=== PATIENT | female | born 1935 | race Caucasian/White ===

== ENCOUNTER 2022-06-02 11:54 | Inpatient (IN) | payer MEDICARE, MEDICAID ==
[~2022-06-02] VITALS: Ht 162.6 cm; Wt 93.9 kg
[2022-06-02] VITALS (23 sets, daily range): BP systolic 53–213; BP diastolic 24–169
[~2022-06-02 11:54] MED LIST: ETOMIDATE 2MG/ML 10ML VIAL IV ONE; SODIUM CHLORIDE 0.9% 10ML VIAL ONE; VECURONIUM BROMIDE 10 MG/VIAL IV ONE
[2022-06-02 12:15] LABS: BASOPHILS % 0.9 % (0.0-2.0); EOSINOPHILS % 0.1 % (0.0-5.0); HEMATOCRIT. 43.5 % (36.0-48.0); HEMOGLOBIN. 13.9 g/dL (12.0-16.0); MEAN CORPUSCULAR VOLUME 90.8 fL (81.0-99.0); MEAN PLATELET VOLUME 10.2 fl (7.4-10.4); MONOCYTES % 3.3 % (2.0-8.0); NEUTROPHILS % 87.7 % (40.0-76.0); PLATELET 227 x1000/uL (130-400); RED BLOOD CELL COUNT 4.79 mill/uL (4.2-5.4)
[2022-06-02] MEDS ORDERED: PIPERACILLIN/TAZ 3.375G PREMIX 50 ML IV ONE (12:15)
[2022-06-02] MEDS ORDERED: ACETAMINOPHEN 650MG SUPP PR ONE ×2 (12:15→13:30)
[2022-06-02] MEDS ORDERED: SODIUM CHLORIDE 0.9% 1000ML BAG (SEPSIS BOLUS) IV ONE (12:15)
[2022-06-02] MEDS ORDERED: VANCOMYCIN 1G PREMIX 200 ML IV ONE (12:15)
[2022-06-02 12:23] LABS: CHLORIDE 88 mEq/L (98-107)
[2022-06-02 12:28] LABS: INR 1.4; PROTHROMBIN TIME 14.2 sec (9.6-11.0)
[2022-06-02 12:29] LABS: CLARITY URINE CLEAR (CLEAR); COLOR URINE YELLOW (YELLOW); KETONES URINE 1+ (NEGATIVE); LEUKOCYTE ESTERASE URINE NEGATIVE (NEGATIVE); NITRITE URINE NEGATIVE (NEGATIVE); OCCULT BLOOD URINE 2+ (NEGATIVE); PROTEIN URINE 4+ (NEGATIVE); SPECIFIC GRAVITY URINE 1.026 (1.005-1.030)
[2022-06-02] MEDS ORDERED: ACETAMINOPHEN 325MG SUPP PR NR (13:15)
[2022-06-02] MEDS ORDERED: MIDAZOLAM 100MG/100ML PMX 100 ML IV PRN (14:00)
[2022-06-02] MEDS ORDERED: VECURONIUM BROMIDE 10 MG/VIAL IV ONE (14:00)
[2022-06-02] MEDS ORDERED: MIDAZOLAM HCL 2 MG/2 ML VIAL IV ONE (14:00)
[2022-06-02] MEDS ORDERED: FENTANYL 2500MCG/250ML PMX 250 ML IV ONE (14:00)
[2022-06-02] MEDS ORDERED: DANTROLENE SODIUM 100 MG GT STA (14:05)
[2022-06-02] MEDS ORDERED: SODIUM CHLORIDE 0.9% 1,000 ML IV ONE ×2 (14:15)
[2022-06-02] MEDS ORDERED: MIDAZOLAM HCL 100 MG in DEXT 5% WATER 80 ML IV PRN (14:15)
[2022-06-02] MEDS ORDERED: MIDAZOLAM HCL 100 MG in SODIUM CHLORIDE 0.9% 80 ML IV PRN (14:30)
[2022-06-02] MEDS ORDERED: PROPOFOL 10MG/ML 100ML 100 ML IV SCH (14:30)
[2022-06-02] MEDS ORDERED: INSULIN REGULAR (HUMULIN R) 300UNITS/3ML VIAL SUBCUT ONE (14:30)
[2022-06-02] MEDS ORDERED: DANTROLENE SODIUM 100 MG PO ONE (14:45)
[2022-06-02 15:43] LABS: BG BASE EXCESS -9.9 mmol/L (-2.0-2.0); BG CARBOXYHEMOGLOBIN 0.4 % (0.5-1.5); BG DEOXYHEMOGLOBIN 0.1 % (0.0-5.0); BG FRACTION INSPIRED OXYGEN 100; BG HCO3 ACT 14.5 mmol/L (22.0-26.0); BG METHEMOGLOBIN 0.5 % (0.0-1.5); BG OXYGEN SATURATION 99.9 % (92.0-98.5); BG PCO2 28.2 mmHg (35.0-45.0); BG PO2 319.3 mmHg (75.0-100.0); BG SAMPLE SITE RIGHT RADIAL; BG TOTAL HEMOGLOBIN 13.5 g/dL (12.0-18.0); BG VENT MODE VENT - AC
[2022-06-02] MEDS ORDERED: DANTROLENE IV SCH (16:00)
[2022-06-02] MEDS ORDERED: ONDANSETRON HCL 4MG/2ML INJ IV PRN (16:15)
[2022-06-02] MEDS ORDERED: IPRATROPIUM/ALBUTEROL 0.5-3(2.5)MG/3ML NEB NEB PRN (16:15)
[2022-06-02] MEDS ORDERED: DEXTROSE 50% WATER 50ML SYRINGE IV PRN (16:30)
[2022-06-02] MEDS ORDERED: LEVETIRACETAM 500MG PREMIX 100 ML IV SCH ×2 (16:30→20:00)
[2022-06-02] MEDS ORDERED: MEROPENEM 1,000 MG in SODIUM CHLORIDE 0.9% 100 ML IV SCH (17:00)
[2022-06-02] MEDS ORDERED: BLOOD SUGAR DIAGNOSTIC STRIP TEST SCH (17:00)
[2022-06-02] MEDS ORDERED: LACTATED RINGERS 1,000 ML IV SCH ×2 (17:40→17:45)
[2022-06-02] MEDS ORDERED: VASOPRESSIN 20 UNIT in SODIUM CHLORIDE 0.9% 99 ML IV PRN (17:45)
[2022-06-02] MEDS ORDERED: PHENYLEPHRINE 50 MG in DEXT 5% WATER 245 ML IV PRN ×2 (17:45→18:00)
[2022-06-02] MEDS ORDERED: ENOXAPARIN 40MG/0.4ML SYR SUBCUT SCH (18:00)
[2022-06-02] MEDS: SODIUM CHLORIDE 0.9% 1,000 ML IV SCH (18:26)
[2022-06-02] MEDS: MEROPENEM 1,000 MG in SODIUM CHLORIDE 0.9% 100 ML IV SCH (18:26)
[2022-06-02] MEDS: VASOPRESSIN 20 UNIT in SODIUM CHLORIDE 0.9% 99 ML IV PRN (18:51)
[2022-06-02] MEDS: INSULIN LISPRO 100 UNITS/ML SUBCUT SCH ×2 (18:57→20:44)
[2022-06-02] MEDS ORDERED: VANCOMYCIN 1,750 MG in DEXT 5% WATER 500 ML IV NR (19:00)
[2022-06-02] MEDS: NOREPINEPHRINE 32 MG in DEXT 5% WATER 218 ML IV PRN (19:19)
[2022-06-02] MEDS: IPRATROPIUM/ALBUTEROL 0.5-3(2.5)MG/3ML NEB HHN SCH (19:59)
[2022-06-02] MEDS: LEVETIRACETAM 500MG PREMIX 100 ML IV SCH (20:13)
[2022-06-02] MEDS: BLOOD SUGAR DIAGNOSTIC STRIP TEST SCH (20:46)
[2022-06-02] MEDS ORDERED: PIPERACILLIN/TAZOBACTAM 3.375 G in DEXTROSE 5% WATER 50 ML IV SCH (21:00)
[2022-06-02] MEDS: PHENYLEPHRINE 100 MG in DEXT 5% WATER 240 ML IV SCH (21:47)
[2022-06-02 23:38] LABS: CREATINE KINASE 473 IU/L (26-192); CREATINE KINASE MB FRACTION 11.8 ng/mL (0.5-3.6)
[2022-06-03] VITALS (90 sets, daily range): BP systolic 52–183; BP diastolic 32–98
[2022-06-03 00:03] LABS: BG BASE EXCESS -13.8 mmol/L (-2.0-2.0); BG CARBOXYHEMOGLOBIN 0.4 % (0.5-1.5); BG DEOXYHEMOGLOBIN 1.9 % (0.0-5.0); BG FRACTION INSPIRED OXYGEN 70; BG HCO3 ACT 13.3 mmol/L (22.0-26.0); BG METHEMOGLOBIN 0.3 % (0.0-1.5); BG OXYGEN SATURATION 98.1 % (92.0-98.5); BG OXYHEMOGLOBIN 97.4 % (94.0-97.0); BG PCO2 35.1 mmHg (35.0-45.0); BG PH 7.195 (7.350-7.450); BG PO2 118.9 mmHg (75.0-100.0); BG SAMPLE SITE RIGHT BRACHIAL; BG TOTAL HEMOGLOBIN 14.8 g/dL (12.0-18.0); BG TOTAL RESPIRATORY RATE 20 b/min; BG VENT MODE VENT - AC
[2022-06-03] MEDS: INSULIN LISPRO 100 UNITS/ML SUBCUT SCH ×7 (00:23→23:53)
[2022-06-03] MEDS: SODIUM BICARBONATE 100 MEQ in SODIUM CHLORIDE 0.45% 1,000 ML IV SCH ×2 (01:31→15:47)
[2022-06-03] MEDS: NOREPINEPHRINE 32 MG in DEXT 5% WATER 218 ML IV PRN ×3 (01:51→15:48)
[2022-06-03] MEDS: IPRATROPIUM/ALBUTEROL 0.5-3(2.5)MG/3ML NEB HHN SCH ×4 (02:04→20:57)
[2022-06-03 04:43] LABS: CREATINE KINASE MB FRACTION 15.8 ng/mL (0.5-3.6)
[2022-06-03] MEDS: BLOOD SUGAR DIAGNOSTIC STRIP TEST SCH ×7 (04:48→23:53)
[2022-06-03] MEDS: SODIUM CHLORIDE 0.9% 1,000 ML IV SCH ×4 (04:53→23:53)
[2022-06-03] MEDS: PHENYLEPHRINE 100 MG in DEXT 5% WATER 240 ML IV SCH ×3 (04:56→17:16)
[2022-06-03] MEDS: VASOPRESSIN 20 UNIT in SODIUM CHLORIDE 0.9% 99 ML IV PRN (04:57)
[2022-06-03 07:44] LABS: HEMATOCRIT. 46.2 % (36.0-48.0); HEMOGLOBIN. 14.3 g/dL (12.0-16.0); MEAN CORPUSCULAR VOLUME 93.8 fL (81.0-99.0); RED BLOOD CELL COUNT 4.93 mill/uL (4.2-5.4); RED CELL DISTRIBUTION WIDTH 15.7 % (11.6-14.6)
[2022-06-03 08:24] LABS: PLATELET ESTIMATE DECREASED
[2022-06-03 08:25] LABS: MEAN PLATELET VOLUME 9.8 fl (7.4-10.4)
[2022-06-03 08:26] LABS: PLATELET 59 x1000/uL (130-400)
[2022-06-03 08:36] LABS: BG BASE EXCESS -10.6 mmol/L (-2.0-2.0); BG CARBOXYHEMOGLOBIN 0.7 % (0.5-1.5); BG DEOXYHEMOGLOBIN 1.8 % (0.0-5.0); BG FRACTION INSPIRED OXYGEN 70; BG HCO3 ACT 14.7 mmol/L (22.0-26.0); BG METHEMOGLOBIN 0.3 % (0.0-1.5); BG OXYGEN SATURATION 98.2 % (92.0-98.5); BG OXYHEMOGLOBIN 97.2 % (94.0-97.0); BG PCO2 31.5 mmHg (35.0-45.0); BG PH 7.287 (7.350-7.450); BG PO2 105.2 mmHg (75.0-100.0); BG SAMPLE SITE RIGHT RADIAL; BG TOTAL HEMOGLOBIN 14.9 g/dL (12.0-18.0); BG VENT MODE VENT - AC
[2022-06-03] MEDS: LEVETIRACETAM 500MG PREMIX 100 ML IV SCH ×2 (08:38→21:22)
[2022-06-03] MEDS ORDERED: PANTOPRAZOLE SODIUM 40 MG/VIAL IV SCH (09:00)
[2022-06-03] MEDS: MEROPENEM 1,000 MG in SODIUM CHLORIDE 0.9% 100 ML IV SCH ×2 (09:35→21:21)
[2022-06-03] MEDS: LAMOTRIGINE 25MG TABLET NG SCH ×2 (09:35→17:14)
[2022-06-03] MEDS ORDERED: SODIUM BICARBONATE 8.4% 1 MEQ/ML 50ML SYR IV NR (14:15)
[2022-06-03 17:00] LABS: BG BASE EXCESS -7.7 mmol/L (-2.0-2.0); BG CARBOXYHEMOGLOBIN 0.7 % (0.5-1.5); BG DEOXYHEMOGLOBIN 1.1 % (0.0-5.0); BG FRACTION INSPIRED OXYGEN 100; BG METHEMOGLOBIN 0.3 % (0.0-1.5); BG OXYGEN SATURATION 98.9 % (92.0-98.5); BG OXYHEMOGLOBIN 97.9 % (94.0-97.0); BG PCO2 37.3 mmHg (35.0-45.0); BG PH 7.301 (7.350-7.450); BG PO2 135.3 mmHg (75.0-100.0); BG SAMPLE SITE RIGHT RADIAL; BG TOTAL HEMOGLOBIN 14.6 g/dL (12.0-18.0); BG VENT MODE VENT - AC
[2022-06-03] MEDS: DAPTOMYCIN 500 MG in SODIUM CHLORIDE 0.9% 50 ML IV SCH (17:14)
[2022-06-03] MEDS ORDERED: TOPUD MT (18:00)
[2022-06-03 18:04] LABS: HEMATOCRIT 41.7 % (36.0-48.0); HEMOGLOBIN 13.7 g/dL (12.0-16.0); MEAN CORPUSCULAR HEMOGLOBIN 29.5 pg (28.0-32.0); MEAN CORPUSCULAR VOLUME 89.5 fL (81.0-99.0); RED BLOOD CELL COUNT 4.66 mill/uL (4.2-5.4); RED CELL DISTRIBUTION WIDTH 15.6 % (11.6-14.6)
[2022-06-03] MEDS ORDERED: ALBU90AE INH (18:05)
[2022-06-03] MEDS ORDERED: ALPR-394 MT (18:06)
[2022-06-03] MEDS ORDERED: AMIT25TA9 MT (18:07)
[2022-06-03] MEDS ORDERED: ASPI-1497 MT (18:08)
[2022-06-03] MEDS ORDERED: CLON1PAT12 TP (18:09)
[2022-06-03 18:11] LABS: PLATELET 46 x1000/uL (130-400)
[2022-06-03] MEDS ORDERED: DOCU-138 PO (18:15)
[2022-06-03] MEDS ORDERED: DULO60CA64 MT (18:17)
[2022-06-03] MEDS ORDERED: GABA300S PO (18:18)
[2022-06-03] MEDS ORDERED: LAMO25TA71 PO (18:19)
[2022-06-03] MEDS ORDERED: LOSA50TA41 MT (18:20)
[2022-06-03] MEDS ORDERED: NITR0.4T49 SL (18:22)
[2022-06-03] MEDS ORDERED: POLY17PO3 MT (18:22)
[2022-06-03] MEDS ORDERED: OXYC1TAB5 MT (18:25)
[2022-06-03] MEDS ORDERED: DICL100G31 TP (18:46)
[2022-06-03] MEDS: ACETAMINOPHEN 325MG TABLET PO PRN (22:53)
[2022-06-04] VITALS (96 sets, daily range): BP systolic 93–138; BP diastolic 49–94
[2022-06-04] MEDS: IPRATROPIUM/ALBUTEROL 0.5-3(2.5)MG/3ML NEB HHN SCH ×5 (01:05→20:03)
[2022-06-04] MEDS: PHENYLEPHRINE 100 MG in DEXT 5% WATER 240 ML IV SCH ×3 (02:54→23:52)
[2022-06-04] MEDS: ACETAMINOPHEN 325MG TABLET PO PRN (02:55)
[2022-06-04] MEDS: INSULIN LISPRO 100 UNITS/ML SUBCUT SCH ×5 (04:30→23:30)
[2022-06-04] MEDS: BLOOD SUGAR DIAGNOSTIC STRIP TEST SCH ×5 (04:46→23:27)
[2022-06-04] MEDS: SODIUM BICARBONATE 100 MEQ in SODIUM CHLORIDE 0.45% 1,000 ML IV SCH ×2 (06:13→20:30)
[2022-06-04 06:39] LABS: HEMATOCRIT 41.2 % (36.0-48.0); HEMOGLOBIN 13.6 g/dL (12.0-16.0); MEAN CORPUSCULAR HEMOGLOBIN 29.3 pg (28.0-32.0); MEAN CORPUSCULAR VOLUME 88.9 fL (81.0-99.0); RED BLOOD CELL COUNT 4.64 mill/uL (4.2-5.4); RED CELL DISTRIBUTION WIDTH 15.5 % (11.6-14.6)
[2022-06-04 07:00] LABS: PHOSPHORUS 3.5 mg/dL (2.5-4.9)
[2022-06-04 08:00] LABS: PLATELET 58 x1000/uL (130-400)
[2022-06-04 08:13] LABS: BG BASE EXCESS -6.2 mmol/L (-2.0-2.0); BG DEOXYHEMOGLOBIN 2.1 % (0.0-5.0); BG HCO3 ACT 17.8 mmol/L (22.0-26.0); BG METHEMOGLOBIN 0.3 % (0.0-1.5); BG OXYGEN SATURATION 97.9 % (92.0-98.5); BG OXYHEMOGLOBIN 96.6 % (94.0-97.0); BG PCO2 31.2 mmHg (35.0-45.0); BG PH 7.373 (7.350-7.450); BG PO2 100.1 mmHg (75.0-100.0); BG SAMPLE SITE RIGHT RADIAL; BG TOTAL HEMOGLOBIN 14.9 g/dL (12.0-18.0); BG VENT MODE VENT - AC
[2022-06-04] MEDS: LEVETIRACETAM 500MG PREMIX 100 ML IV SCH ×2 (08:15→20:26)
[2022-06-04] MEDS: FAMOTIDINE 20MG/2ML VIAL IV SCH (08:15)
[2022-06-04] MEDS: MEROPENEM 1,000 MG in SODIUM CHLORIDE 0.9% 100 ML IV SCH ×2 (08:15→20:26)
[2022-06-04] MEDS: LEVOTHYROXINE SODIUM 25MCG TABLET PO SCH (08:15)
[2022-06-04] MEDS: LAMOTRIGINE 25MG TABLET NG SCH ×2 (08:15→17:13)
[2022-06-04] MEDS ORDERED: ENOXAPARIN 30MG/0.3ML SYR SUBCUT SCH (09:00)
[2022-06-04] MEDS: ACETAMINOPHEN 650MG/20.3ML UDC PO PRN ×3 (10:37→23:37)
[2022-06-04] MEDS ORDERED: LACTULOSE 20G/30ML UDC PO NR (11:15)
[2022-06-04] MEDS ORDERED: BISACODYL 5MG TABLET PO PRN (11:15)
[2022-06-04] MEDS: CITRIC ACID/SODIUM CITRATE SOLN 30ML UDC PO SCH ×2 (12:41→17:13)
[2022-06-04] MEDS ORDERED: POLYVINYL ALCOHOL OPHTH DROPS 15ML BOTHEYE PRN (13:00)
[2022-06-04] MEDS ORDERED: POTASSIUM BICARB/CIT ACID 25 MEQ TABLET.EFF NG NR (15:30)
[2022-06-04] MEDS ORDERED: MAGNESIUM 2 G PREMIX 50 ML IV NR (15:30)
[2022-06-04 17:07] LABS: BG BASE EXCESS -6.4 mmol/L (-2.0-2.0); BG CARBOXYHEMOGLOBIN 0.4 % (0.5-1.5); BG DEOXYHEMOGLOBIN 4.2 % (0.0-5.0); BG FRACTION INSPIRED OXYGEN 40; BG HCO3 ACT 17.2 mmol/L (22.0-26.0); BG METHEMOGLOBIN 0.4 % (0.0-1.5); BG OXYGEN SATURATION 95.8 % (92.0-98.5); BG PCO2 29.4 mmHg (35.0-45.0); BG PH 7.385 (7.350-7.450); BG PO2 80.7 mmHg (75.0-100.0); BG SAMPLE SITE RIGHT RADIAL; BG VENT MODE VENT - AC
[2022-06-05] VITALS (91 sets, daily range): BP systolic 80–126; BP diastolic 52–79
[2022-06-05] MEDS: BLOOD SUGAR DIAGNOSTIC STRIP TEST SCH ×3 (05:14→17:34)
[2022-06-05] MEDS: INSULIN LISPRO 100 UNITS/ML SUBCUT SCH ×3 (05:14→17:34)
[2022-06-05 06:13] LABS: HEMATOCRIT. 39.8 % (36.0-48.0); HEMOGLOBIN. 13.3 g/dL (12.0-16.0); MEAN CORPUSCULAR HEMOGLOBIN 29.7 pg (28.0-32.0); MEAN CORPUSCULAR VOLUME 88.9 fL (81.0-99.0); PLATELET 75 x1000/uL (130-400); RED BLOOD CELL COUNT 4.48 mill/uL (4.2-5.4); RED CELL DISTRIBUTION WIDTH 15.8 % (11.6-14.6)
[2022-06-05 06:21] LABS: PHOSPHORUS 3.3 mg/dL (2.5-4.9)
[2022-06-05] MEDS: IPRATROPIUM/ALBUTEROL 0.5-3(2.5)MG/3ML NEB HHN SCH ×3 (07:54→20:20)
[2022-06-05 07:58] LABS: PLATELET ESTIMATE DECREASED
[2022-06-05] MEDS: LEVETIRACETAM 500MG PREMIX 100 ML IV SCH ×2 (08:32→21:15)
[2022-06-05] MEDS: MEROPENEM 1,000 MG in SODIUM CHLORIDE 0.9% 100 ML IV SCH ×2 (08:32→21:15)
[2022-06-05] MEDS: FAMOTIDINE 20MG/2ML VIAL IV SCH (08:33)
[2022-06-05] MEDS: LEVOTHYROXINE SODIUM 25MCG TABLET PO SCH (08:33)
[2022-06-05] MEDS: PHENYLEPHRINE 100 MG in DEXT 5% WATER 240 ML IV SCH ×2 (08:33→14:59)
[2022-06-05] MEDS: CITRIC ACID/SODIUM CITRATE SOLN 30ML UDC PO SCH ×3 (08:33→17:33)
[2022-06-05] MEDS: LAMOTRIGINE 25MG TABLET NG SCH ×2 (08:33→17:33)
[2022-06-05] MEDS ORDERED: POTASSIUM CHLORIDE 20MEQ/PACKET PO NR (09:00)
[2022-06-05 09:16] LABS: BG BASE EXCESS -3.4 mmol/L (-2.0-2.0); BG CARBOXYHEMOGLOBIN 1.1 % (0.5-1.5); BG DEOXYHEMOGLOBIN 1.6 % (0.0-5.0); BG FRACTION INSPIRED OXYGEN 40; BG HCO3 ACT 18.9 mmol/L (22.0-26.0); BG METHEMOGLOBIN 0.1 % (0.0-1.5); BG OXYGEN SATURATION 98.4 % (92.0-98.5); BG OXYHEMOGLOBIN 97.2 % (94.0-97.0); BG PH 7.462 (7.350-7.450); BG PO2 106.7 mmHg (75.0-100.0); BG SAMPLE SITE RIGHT RADIAL; BG TOTAL HEMOGLOBIN 13.6 g/dL (12.0-18.0); BG VENT MODE VENT - AC
[2022-06-05] MEDS: SODIUM BICARBONATE 100 MEQ in SODIUM CHLORIDE 0.45% 1,000 ML IV SCH (13:38)
[2022-06-05] MEDS ORDERED: CALCIUM CHLORIDE 1,000 MG in DEXT 5% WATER 90 ML IV NR (14:00)
[2022-06-05] MEDS ORDERED: NA PHOS,M-B/NA PHOS,DI-BA ENEMA 118ML PR NR (16:15)
[2022-06-05] MEDS: DAPTOMYCIN 500 MG in SODIUM CHLORIDE 0.9% 50 ML IV SCH (17:33)
[2022-06-06] VITALS (79 sets, daily range): BP systolic 96–172; BP diastolic 57–105
[2022-06-06] MEDS: BLOOD SUGAR DIAGNOSTIC STRIP TEST SCH ×5 (00:45→23:34)
[2022-06-06] MEDS: INSULIN LISPRO 100 UNITS/ML SUBCUT SCH ×5 (00:45→23:38)
[2022-06-06] MEDS: IPRATROPIUM/ALBUTEROL 0.5-3(2.5)MG/3ML NEB HHN SCH ×4 (01:53→20:30)
[2022-06-06] MEDS: SODIUM BICARBONATE 100 MEQ in SODIUM CHLORIDE 0.45% 1,000 ML IV SCH (02:21)
[2022-06-06 06:15] LABS: HEMATOCRIT. 37.2 % (36.0-48.0); HEMOGLOBIN. 12.3 g/dL (12.0-16.0); MEAN CORPUSCULAR HEMOGLOBIN 29.4 pg (28.0-32.0); MEAN CORPUSCULAR VOLUME 89.1 fL (81.0-99.0); PLATELET 75 x1000/uL (130-400); RED BLOOD CELL COUNT 4.18 mill/uL (4.2-5.4); RED CELL DISTRIBUTION WIDTH 15.8 % (11.6-14.6)
[2022-06-06 06:20] LABS: PHOSPHORUS 3.6 mg/dL (2.5-4.9)
[2022-06-06 07:30] LABS: BG BASE EXCESS 4.5 mmol/L (-2.0-2.0); BG CARBOXYHEMOGLOBIN 0.6 % (0.5-1.5); BG DEOXYHEMOGLOBIN 2.6 % (0.0-5.0); BG HCO3 ACT 27.5 mmol/L (22.0-26.0); BG METHEMOGLOBIN 0.2 % (0.0-1.5); BG OXYGEN SATURATION 97.4 % (92.0-98.5); BG OXYHEMOGLOBIN 96.6 % (94.0-97.0); BG PCO2 35.5 mmHg (35.0-45.0); BG PH 7.507 (7.350-7.450); BG PO2 95.6 mmHg (75.0-100.0); BG SAMPLE SITE RIGHT RADIAL; BG TOTAL HEMOGLOBIN 13.3 g/dL (12.0-18.0); BG VENT MODE VENT - AC
[2022-06-06 08:19] LABS: PLATELET ESTIMATE DECREASED
[2022-06-06] MEDS: FAMOTIDINE 20MG/2ML VIAL IV SCH (08:41)
[2022-06-06] MEDS: MEROPENEM 1,000 MG in SODIUM CHLORIDE 0.9% 100 ML IV SCH ×2 (08:41→21:12)
[2022-06-06] MEDS: LAMOTRIGINE 25MG TABLET NG SCH ×2 (08:41→17:54)
[2022-06-06] MEDS: LEVETIRACETAM 500MG PREMIX 100 ML IV SCH ×2 (08:41→21:12)
[2022-06-06] MEDS: LEVOTHYROXINE SODIUM 25MCG TABLET PO SCH (08:41)
[2022-06-06] MEDS: CITRIC ACID/SODIUM CITRATE SOLN 30ML UDC PO SCH (08:42)
[2022-06-06 10:08] LABS: ANTI-NUCLEAR ANTIBODIES DIRECT Positive (Negative)
[2022-06-06 12:52] LABS: HEPATITIS B SURFACE ANTIGEN NEGATIVE
[2022-06-06] MEDS ORDERED: ASPIRIN 81MG TABLET PO SCH (21:30)
[2022-06-07] VITALS (36 sets, daily range): BP systolic 111–169; BP diastolic 63–90
[2022-06-07] MEDS: IPRATROPIUM/ALBUTEROL 0.5-3(2.5)MG/3ML NEB HHN SCH ×4 (01:48→20:48)
[2022-06-07] MEDS: BLOOD SUGAR DIAGNOSTIC STRIP TEST SCH ×4 (05:22→23:41)
[2022-06-07] MEDS: INSULIN LISPRO 100 UNITS/ML SUBCUT SCH ×4 (05:26→23:44)
[2022-06-07 06:03] LABS: HEMATOCRIT 35.4 % (36.0-48.0); MEAN CORPUSCULAR HEMOGLOBIN 30.1 pg (28.0-32.0); PLATELET 67 x1000/uL (130-400); RED BLOOD CELL COUNT 3.98 mill/uL (4.2-5.4)
[2022-06-07] MEDS: LEVOTHYROXINE SODIUM 25MCG TABLET PO SCH (06:31)
[2022-06-07 06:47] LABS: CHLORIDE 99 mEq/L (98-107)
[2022-06-07 08:42] LABS: BG BASE EXCESS 6.6 mmol/L (-2.0-2.0); BG CARBOXYHEMOGLOBIN 0.5 % (0.5-1.5); BG DEOXYHEMOGLOBIN 2.1 % (0.0-5.0); BG FRACTION INSPIRED OXYGEN 40; BG HCO3 ACT 29.6 mmol/L (22.0-26.0); BG METHEMOGLOBIN 0.4 % (0.0-1.5); BG OXYGEN SATURATION 97.9 % (92.0-98.5); BG PCO2 36.5 mmHg (35.0-45.0); BG PH 7.527 (7.350-7.450); BG PO2 103.6 mmHg (75.0-100.0); BG SAMPLE SITE RIGHT RADIAL; BG TOTAL HEMOGLOBIN 12.2 g/dL (12.0-18.0); BG VENT MODE VENT - AC
[2022-06-07 09:24] LABS: AMYLASE 64 IU/L (25-115)
[2022-06-07] MEDS: LAMOTRIGINE 25MG TABLET NG SCH ×2 (09:29→17:53)
[2022-06-07] MEDS: MEROPENEM 1,000 MG in SODIUM CHLORIDE 0.9% 100 ML IV SCH ×2 (09:30→20:59)
[2022-06-07] MEDS: LEVETIRACETAM 500MG PREMIX 100 ML IV SCH ×2 (09:30→20:59)
[2022-06-07] MEDS: FAMOTIDINE 20MG/2ML VIAL IV SCH (09:31)
[2022-06-07 12:33] LABS: BG BASE EXCESS 5.5 mmol/L (-2.0-2.0); BG CARBOXYHEMOGLOBIN 0.4 % (0.5-1.5); BG DEOXYHEMOGLOBIN 3.6 % (0.0-5.0); BG FRACTION INSPIRED OXYGEN 40; BG HCO3 ACT 28.9 mmol/L (22.0-26.0); BG METHEMOGLOBIN 0.3 % (0.0-1.5); BG OXYGEN SATURATION 96.4 % (92.0-98.5); BG OXYHEMOGLOBIN 95.7 % (94.0-97.0); BG PCO2 37.6 mmHg (35.0-45.0); BG PH 7.503 (7.350-7.450); BG PO2 84.7 mmHg (75.0-100.0); BG SAMPLE SITE RIGHT RADIAL; BG TOTAL HEMOGLOBIN 12.8 g/dL (12.0-18.0); BG VENT MODE VENT - AC
[2022-06-08] VITALS (29 sets, daily range): BP systolic 128–183; BP diastolic 73–106
[2022-06-08] MEDS: IPRATROPIUM/ALBUTEROL 0.5-3(2.5)MG/3ML NEB HHN SCH ×4 (02:19→20:55)
[2022-06-08 05:44] LABS: HEMATOCRIT. 34.9 % (36.0-48.0); HEMOGLOBIN. 11.7 g/dL (12.0-16.0); MEAN CORPUSCULAR HEMOGLOBIN 29.9 pg (28.0-32.0); MEAN CORPUSCULAR VOLUME 89.4 fL (81.0-99.0); MEAN PLATELET VOLUME 11.6 fl (7.4-10.4); PLATELET 84 x1000/uL (130-400); RED BLOOD CELL COUNT 3.91 mill/uL (4.2-5.4); RED CELL DISTRIBUTION WIDTH 16.3 % (11.6-14.6)
[2022-06-08 05:47] LABS: CHLORIDE 98 mEq/L (98-107)
[2022-06-08] MEDS: BLOOD SUGAR DIAGNOSTIC STRIP TEST SCH ×4 (05:57→23:45)
[2022-06-08] MEDS: INSULIN LISPRO 100 UNITS/ML SUBCUT SCH ×4 (05:58→23:49)
[2022-06-08 07:40] LABS: BG BASE EXCESS 5.3 mmol/L (-2.0-2.0); BG CARBOXYHEMOGLOBIN 0.5 % (0.5-1.5); BG DEOXYHEMOGLOBIN 2.5 % (0.0-5.0); BG HCO3 ACT 28.1 mmol/L (22.0-26.0); BG METHEMOGLOBIN 0.4 % (0.0-1.5); BG OXYGEN SATURATION 97.5 % (92.0-98.5); BG OXYHEMOGLOBIN 96.6 % (94.0-97.0); BG PCO2 35.1 mmHg (35.0-45.0); BG PH 7.522 (7.350-7.450); BG PO2 95.4 mmHg (75.0-100.0); BG SAMPLE SITE RIGHT RADIAL; BG TOTAL HEMOGLOBIN 11.9 g/dL (12.0-18.0); BG VENT MODE VENT - AC
[2022-06-08 08:21] LABS: PLATELET ESTIMATE DECREASED
[2022-06-08] MEDS: MEROPENEM 1,000 MG in SODIUM CHLORIDE 0.9% 100 ML IV SCH ×2 (08:22→20:49)
[2022-06-08] MEDS: LEVETIRACETAM 500MG PREMIX 100 ML IV SCH ×2 (08:22→20:49)
[2022-06-08] MEDS: LAMOTRIGINE 25MG TABLET NG SCH ×2 (08:23→17:21)
[2022-06-08] MEDS: LEVOTHYROXINE SODIUM 25MCG TABLET PO SCH (08:23)
[2022-06-08] MEDS: FAMOTIDINE 20MG/2ML VIAL IV SCH (08:23)
[2022-06-08] MEDS: ASPIRIN 81MG EC TABLET PO SCH (10:45)
[2022-06-08] MEDS ORDERED: NALOXONE HCL 0.4MG/ML VIAL IV PRN (16:00)
[2022-06-08] MEDS: MORPHINE SULFATE 2 MG/ML CPJ (NOT FOR IM USE) IV PRN (16:02)
[2022-06-08] MEDS ORDERED: HYDRALAZINE 20MG/ML VIAL IV SCH (23:00)
[2022-06-09] VITALS (29 sets, daily range): BP systolic 128–165; BP diastolic 68–95
[2022-06-09] MEDS: IPRATROPIUM/ALBUTEROL 0.5-3(2.5)MG/3ML NEB HHN SCH ×4 (01:22→20:37)
[2022-06-09] MEDS: BLOOD SUGAR DIAGNOSTIC STRIP TEST SCH ×3 (05:49→17:09)
[2022-06-09] MEDS: INSULIN LISPRO 100 UNITS/ML SUBCUT SCH ×3 (05:49→17:29)
[2022-06-09 05:58] LABS: HEMATOCRIT 35.2 % (36.0-48.0); HEMOGLOBIN 11.9 g/dL (12.0-16.0); MEAN CORPUSCULAR VOLUME 88.8 fL (81.0-99.0); PLATELET 102 x1000/uL (130-400); RED BLOOD CELL COUNT 3.96 mill/uL (4.2-5.4); RED CELL DISTRIBUTION WIDTH 16.3 % (11.6-14.6)
[2022-06-09 08:08] LABS: BG BASE EXCESS 4.3 mmol/L (-2.0-2.0); BG CARBOXYHEMOGLOBIN 0.2 % (0.5-1.5); BG DEOXYHEMOGLOBIN 3.4 % (0.0-5.0); BG FRACTION INSPIRED OXYGEN 40; BG HCO3 ACT 27.4 mmol/L (22.0-26.0); BG METHEMOGLOBIN 0.3 % (0.0-1.5); BG OXYGEN SATURATION 96.6 % (92.0-98.5); BG OXYHEMOGLOBIN 96.1 % (94.0-97.0); BG PCO2 35.4 mmHg (35.0-45.0); BG PH 7.506 (7.350-7.450); BG PO2 89.8 mmHg (75.0-100.0); BG SAMPLE SITE RIGHT RADIAL; BG TOTAL HEMOGLOBIN 12.4 g/dL (12.0-18.0); BG TOTAL RESPIRATORY RATE 21 b/min; BG VENT MODE VENT - SIMV
[2022-06-09] MEDS: MEROPENEM 1,000 MG in SODIUM CHLORIDE 0.9% 100 ML IV SCH ×2 (08:43→20:20)
[2022-06-09] MEDS: LAMOTRIGINE 25MG TABLET NG SCH ×2 (08:43→17:30)
[2022-06-09] MEDS: LEVETIRACETAM 500MG PREMIX 100 ML IV SCH ×2 (08:43→20:23)
[2022-06-09] MEDS: ASPIRIN 81MG EC TABLET PO SCH (08:43)
[2022-06-09] MEDS: FAMOTIDINE 20MG/2ML VIAL IV SCH (08:43)
[2022-06-09] MEDS: LEVOTHYROXINE SODIUM 25MCG TABLET PO SCH (08:43)
[2022-06-09] MEDS: MORPHINE SULFATE 2 MG/ML CPJ (NOT FOR IM USE) IV PRN ×3 (08:46→17:30)
[2022-06-09 11:24] LABS: BG BASE EXCESS 2.1 mmol/L (-2.0-2.0); BG CARBOXYHEMOGLOBIN 0.7 % (0.5-1.5); BG DEOXYHEMOGLOBIN 3.4 % (0.0-5.0); BG FRACTION INSPIRED OXYGEN 40; BG HCO3 ACT 25.4 mmol/L (22.0-26.0); BG METHEMOGLOBIN 0.4 % (0.0-1.5); BG OXYGEN SATURATION 96.6 % (92.0-98.5); BG OXYHEMOGLOBIN 95.5 % (94.0-97.0); BG PH 7.478 (7.350-7.450); BG PO2 86.2 mmHg (75.0-100.0); BG SAMPLE SITE LEFT RADIAL; BG TOTAL HEMOGLOBIN 12.4 g/dL (12.0-18.0); BG VENT MODE VENT - CPAP
[2022-06-09] MEDS: FUROSEMIDE 40MG TABLET PO SCH ×2 (11:26→20:23)
[2022-06-09] MEDS: ACETAMINOPHEN 650MG/20.3ML UDC PO PRN (17:29)
[2022-06-09] MEDS: LACTULOSE 20G/30ML UDC PO PRN (20:23)
[2022-06-10] VITALS (43 sets, daily range): BP systolic 91–181; BP diastolic 57–98
[2022-06-10] MEDS: INSULIN LISPRO 100 UNITS/ML SUBCUT SCH ×4 (00:02→18:22)
[2022-06-10] MEDS: BLOOD SUGAR DIAGNOSTIC STRIP TEST SCH ×4 (00:08→18:10)
[2022-06-10] MEDS: IPRATROPIUM/ALBUTEROL 0.5-3(2.5)MG/3ML NEB HHN SCH ×5 (02:16→21:12)
[2022-06-10 06:05] LABS: HEMATOCRIT. 35.1 % (36.0-48.0); HEMOGLOBIN. 11.8 g/dL (12.0-16.0); MEAN CORPUSCULAR HEMOGLOBIN 30.3 pg (28.0-32.0); MEAN CORPUSCULAR VOLUME 89.8 fL (81.0-99.0); MEAN PLATELET VOLUME 10.9 fl (7.4-10.4); PLATELET 133 x1000/uL (130-400); RED BLOOD CELL COUNT 3.91 mill/uL (4.2-5.4); RED CELL DISTRIBUTION WIDTH 16.7 % (11.6-14.6)
[2022-06-10] MEDS: HYDRALAZINE 20MG/ML VIAL IV PRN (06:38)
[2022-06-10 07:28] LABS: CHLORIDE 92 mEq/L (98-107)
[2022-06-10 07:34] LABS: CREATINE KINASE 122 IU/L (26-192)
[2022-06-10] MEDS: LEVOTHYROXINE SODIUM 25MCG TABLET PO SCH (07:46)
[2022-06-10 08:12] LABS: PLATELET ESTIMATE NORMAL
[2022-06-10] MEDS: NOREPINEPHRINE 32 MG in DEXT 5% WATER 218 ML IV PRN (09:31)
[2022-06-10] MEDS: FAMOTIDINE 20MG/2ML VIAL IV SCH (11:18)
[2022-06-10] MEDS: MEROPENEM 1,000 MG in SODIUM CHLORIDE 0.9% 100 ML IV SCH ×2 (11:24→20:11)
[2022-06-10] MEDS: FUROSEMIDE 40MG TABLET PO SCH ×2 (11:25→20:14)
[2022-06-10] MEDS: ASPIRIN 81MG EC TABLET PO SCH (11:25)
[2022-06-10] MEDS: LAMOTRIGINE 25MG TABLET NG SCH ×2 (11:25→16:41)
[2022-06-10] MEDS: LEVETIRACETAM 500MG PREMIX 100 ML IV SCH ×2 (11:25→20:12)
[2022-06-10 13:22] LABS: BG BASE EXCESS 1.3 mmol/L (-2.0-2.0); BG CARBOXYHEMOGLOBIN 0.4 % (0.5-1.5); BG DEOXYHEMOGLOBIN 2.5 % (0.0-5.0); BG FRACTION INSPIRED OXYGEN 50; BG HCO3 ACT 24.1 mmol/L (22.0-26.0); BG METHEMOGLOBIN 0.3 % (0.0-1.5); BG OXYGEN SATURATION 97.5 % (92.0-98.5); BG OXYHEMOGLOBIN 96.8 % (94.0-97.0); BG PCO2 32.7 mmHg (35.0-45.0); BG PH 7.486 (7.350-7.450); BG PO2 95.1 mmHg (75.0-100.0); BG SAMPLE SITE RIGHT RADIAL; BG TOTAL HEMOGLOBIN 12.9 g/dL (12.0-18.0); BG TOTAL RESPIRATORY RATE 22 b/min; BG VENT MODE MASK - BIPAP
[2022-06-10] MEDS: ENOXAPARIN 30MG/0.3ML SYR SUBCUT SCH (16:41)
[2022-06-10] MEDS: MORPHINE SULFATE 2 MG/ML CPJ (NOT FOR IM USE) IV PRN (20:13)
[2022-06-11] VITALS (15 sets, daily range): BP systolic 123–194; BP diastolic 51–114
[2022-06-11] MEDS: IPRATROPIUM/ALBUTEROL 0.5-3(2.5)MG/3ML NEB HHN SCH ×3 (02:34→20:54)
[2022-06-11] MEDS: HYDRALAZINE 20MG/ML VIAL IV PRN (03:10)
[2022-06-11] MEDS: MORPHINE SULFATE 2 MG/ML CPJ (NOT FOR IM USE) IV PRN ×2 (03:13→12:25)
[2022-06-11 05:29] LABS: HEMATOCRIT 33.6 % (36.0-48.0); HEMOGLOBIN 11.4 g/dL (12.0-16.0); MEAN CORPUSCULAR HEMOGLOBIN 30.6 pg (28.0-32.0); MEAN CORPUSCULAR VOLUME 90.3 fL (81.0-99.0); PLATELET 140 x1000/uL (130-400); RED BLOOD CELL COUNT 3.72 mill/uL (4.2-5.4); RED CELL DISTRIBUTION WIDTH 16.8 % (11.6-14.6)
[2022-06-11] MEDS: BLOOD SUGAR DIAGNOSTIC STRIP TEST SCH ×4 (06:20→18:09)
[2022-06-11] MEDS: INSULIN LISPRO 100 UNITS/ML SUBCUT SCH ×4 (06:27→18:00)
[2022-06-11 08:24] LABS: BG BASE EXCESS 1.5 mmol/L (-2.0-2.0); BG CARBOXYHEMOGLOBIN 0.3 % (0.5-1.5); BG DEOXYHEMOGLOBIN 4.4 % (0.0-5.0); BG FRACTION INSPIRED OXYGEN 50; BG HCO3 ACT 24.4 mmol/L (22.0-26.0); BG METHEMOGLOBIN 0.2 % (0.0-1.5); BG OXYGEN SATURATION 95.6 % (92.0-98.5); BG OXYHEMOGLOBIN 95.1 % (94.0-97.0); BG PCO2 32.8 mmHg (35.0-45.0); BG PO2 83.1 mmHg (75.0-100.0); BG SAMPLE SITE RIGHT RADIAL; BG TOTAL HEMOGLOBIN 11.6 g/dL (12.0-18.0); BG VENT MODE MASK - BIPAP
[2022-06-11] MEDS: LEVETIRACETAM 500MG PREMIX 100 ML IV SCH ×2 (10:08→22:00)
[2022-06-11] MEDS: LEVOTHYROXINE SODIUM 25MCG TABLET PO SCH (10:09)
[2022-06-11] MEDS: FUROSEMIDE 40MG TABLET PO SCH ×2 (10:09→22:00)
[2022-06-11] MEDS: MEROPENEM 1,000 MG in SODIUM CHLORIDE 0.9% 100 ML IV SCH ×2 (10:09→22:00)
[2022-06-11] MEDS: FAMOTIDINE 20MG/2ML VIAL IV SCH (10:09)
[2022-06-11] MEDS: ASPIRIN 81MG EC TABLET PO SCH (10:09)
[2022-06-11] MEDS: ACETAMINOPHEN 650MG/20.3ML UDC PO PRN (10:09)
[2022-06-11] MEDS: LAMOTRIGINE 25MG TABLET NG SCH ×2 (10:09→18:16)
[2022-06-11] MEDS: SODIUM CHLORIDE 0.9% 1,000 ML IV SCH (18:17)
[2022-06-11] MEDS: ENOXAPARIN 30MG/0.3ML SYR SUBCUT SCH (18:17)
[2022-06-11] MEDS: LACTULOSE 20G/30ML UDC PO PRN (18:33)
[2022-06-12] VITALS (12 sets, daily range): BP systolic 121–155; BP diastolic 71–103
[2022-06-12] MEDS: SODIUM CHLORIDE 0.9% 1,000 ML IV SCH ×2 (00:15→06:38)
[2022-06-12] MEDS: IPRATROPIUM/ALBUTEROL 0.5-3(2.5)MG/3ML NEB HHN SCH ×4 (00:24→20:45)
[2022-06-12] MEDS: INSULIN LISPRO 100 UNITS/ML SUBCUT SCH ×5 (06:00→23:54)
[2022-06-12] MEDS: BLOOD SUGAR DIAGNOSTIC STRIP TEST SCH ×5 (06:37→23:54)
[2022-06-12 06:50] LABS: HEMATOCRIT. 32.1 % (36.0-48.0); HEMOGLOBIN. 10.8 g/dL (12.0-16.0); MEAN CORPUSCULAR HEMOGLOBIN 30.9 pg (28.0-32.0); MEAN CORPUSCULAR VOLUME 91.6 fL (81.0-99.0); MEAN PLATELET VOLUME 10.7 fl (7.4-10.4); PLATELET 143 x1000/uL (130-400); RED CELL DISTRIBUTION WIDTH 16.9 % (11.6-14.6)
[2022-06-12] MEDS: LEVOTHYROXINE SODIUM 25MCG TABLET PO SCH (07:30)
[2022-06-12 08:35] LABS: BG BASE EXCESS 3.9 mmol/L (-2.0-2.0); BG CARBOXYHEMOGLOBIN 0.2 % (0.5-1.5); BG DEOXYHEMOGLOBIN 3.1 % (0.0-5.0); BG FRACTION INSPIRED OXYGEN 50; BG HCO3 ACT 27.5 mmol/L (22.0-26.0); BG METHEMOGLOBIN 0.2 % (0.0-1.5); BG OXYGEN SATURATION 96.9 % (92.0-98.5); BG OXYHEMOGLOBIN 96.5 % (94.0-97.0); BG PCO2 38.1 mmHg (35.0-45.0); BG PH 7.477 (7.350-7.450); BG PO2 90.1 mmHg (75.0-100.0); BG SAMPLE SITE RIGHT RADIAL; BG TOTAL HEMOGLOBIN 11.2 g/dL (12.0-18.0); BG TOTAL RESPIRATORY RATE 20 b/min; BG VENT MODE MASK - BIPAP
[2022-06-12] MEDS: LEVETIRACETAM 500MG TABLET PO SCH ×2 (09:00→21:13)
[2022-06-12] MEDS: LAMOTRIGINE 25MG TABLET NG SCH ×2 (09:00→17:00)
[2022-06-12] MEDS: FAMOTIDINE 20MG TABLET PO SCH (09:00)
[2022-06-12] MEDS: ASPIRIN 81MG EC TABLET PO SCH (09:00)
[2022-06-12] MEDS: FUROSEMIDE 40MG TABLET PO SCH ×2 (09:00→21:13)
[2022-06-12 09:01] LABS: PLATELET ESTIMATE NORMAL
[2022-06-12] MEDS: MEROPENEM 1,000 MG in SODIUM CHLORIDE 0.9% 100 ML IV SCH ×2 (09:14→21:11)
[2022-06-12] MEDS: ENOXAPARIN 30MG/0.3ML SYR SUBCUT SCH (17:23)
[2022-06-12] MEDS: HYDRALAZINE 20MG/ML VIAL IV PRN (21:21)
[2022-06-13] VITALS (10 sets, daily range): BP systolic 110–180; BP diastolic 50–99
[2022-06-13] MEDS: IPRATROPIUM/ALBUTEROL 0.5-3(2.5)MG/3ML NEB HHN SCH ×3 (02:50→16:25)
[2022-06-13] MEDS: INSULIN LISPRO 100 UNITS/ML SUBCUT SCH ×3 (05:38→18:00)
[2022-06-13] MEDS: BLOOD SUGAR DIAGNOSTIC STRIP TEST SCH ×3 (05:38→18:10)
[2022-06-13 06:54] LABS: HEMATOCRIT. 31.9 % (36.0-48.0); HEMOGLOBIN. 10.8 g/dL (12.0-16.0); MEAN CORPUSCULAR HEMOGLOBIN 30.6 pg (28.0-32.0); MEAN PLATELET VOLUME 10.4 fl (7.4-10.4); PLATELET 164 x1000/uL (130-400); RED BLOOD CELL COUNT 3.54 mill/uL (4.2-5.4); RED CELL DISTRIBUTION WIDTH 16.9 % (11.6-14.6)
[2022-06-13 08:10] LABS: PHOSPHORUS 6.6 mg/dL (2.5-4.9)
[2022-06-13 08:17] LABS: BG BASE EXCESS 2.9 mmol/L (-2.0-2.0); BG CARBOXYHEMOGLOBIN 0.2 % (0.5-1.5); BG DEOXYHEMOGLOBIN 8.2 % (0.0-5.0); BG FRACTION INSPIRED OXYGEN 60; BG HCO3 ACT 26.2 mmol/L (22.0-26.0); BG METHEMOGLOBIN 0.1 % (0.0-1.5); BG OXYGEN SATURATION 91.8 % (92.0-98.5); BG OXYHEMOGLOBIN 91.5 % (94.0-97.0); BG PCO2 35.8 mmHg (35.0-45.0); BG PH 7.483 (7.350-7.450); BG PO2 63.8 mmHg (75.0-100.0); BG SAMPLE SITE RIGHT RADIAL; BG TOTAL HEMOGLOBIN 11.2 g/dL (12.0-18.0); BG VENT MODE MASK - BIPAP
[2022-06-13] MEDS: FAMOTIDINE 20MG TABLET PO SCH (09:00)
[2022-06-13 09:04] LABS: PLATELET ESTIMATE NORMAL
[2022-06-13] MEDS: MEROPENEM 1,000 MG in SODIUM CHLORIDE 0.9% 100 ML IV SCH (10:20)
[2022-06-13] MEDS: LEVOTHYROXINE SODIUM 25MCG TABLET PO SCH (10:20)
[2022-06-13] MEDS: LEVETIRACETAM 500MG TABLET PO SCH (10:20)
[2022-06-13] MEDS: FUROSEMIDE 40MG TABLET PO SCH (10:20)
[2022-06-13] MEDS: LAMOTRIGINE 25MG TABLET NG SCH ×2 (10:23→18:29)
[2022-06-13 13:12] LABS: PROTHROMBIN TIME 10.8 sec (9.6-11.0)
[2022-06-13] MEDS: LANTHANUM CARBONATE 500MG CHEW TABLET PO SCH ×2 (14:00→18:28)
== END 2022-06-13 20:09 | DRG 870 ==
LOC: ER 11:54 → MICUSO 14:21 → ENRESERV 14:33 → 5EST 06-03 13:31
PROVIDERS: ADMIT Internal Medicine; ATTEND Internal Medicine
PROC: 5A1955Z Respiratory Ventilation, Greater than 96 Consecutive Hours (ICD-10-PCS; 2022-06-02)
PROC: 0BH17EZ Insertion of Endotracheal Airway into Trachea, Via Natural or Artificial Opening (ICD-10-PCS; principal; 2022-06-03)
PROC: 4A00X4Z Measurement of Central Nervous Electrical Activity, External Approach (ICD-10-PCS; 2022-06-05)
PROC: 5A1D70Z Performance of Urinary Filtration, Intermittent, Less than 6 Hours Per Day (ICD-10-PCS; 2022-06-06)
PROC: 02H633Z Insertion of Infusion Device into Right Atrium, Percutaneous Approach (ICD-10-PCS; 2022-06-06)
PROC: B548ZZA Ultrasonography of Superior Vena Cava, Guidance (ICD-10-PCS; 2022-06-06)
PROC: 5A1D70Z Performance of Urinary Filtration, Intermittent, Less than 6 Hours Per Day (ICD-10-PCS; 2022-06-08)
PROC: 5A09457 Assistance with Respiratory Ventilation, 24-96 Consecutive Hours, Continuous Positive Airway Pressure (ICD-10-PCS; 2022-06-10)
PROC: 5A09357 Assistance with Respiratory Ventilation, Less than 24 Consecutive Hours, Continuous Positive Airway Pressure (ICD-10-PCS; 2022-06-13)
DX: A41.1 Sepsis due to other specified staphylococcus (principal); G93.41 Metabolic encephalopathy; N17.0 Acute kidney failure with tubular necrosis; R65.21 Severe sepsis with septic shock; J96.01 Acute respiratory failure with hypoxia; J69.0 Pneumonitis due to inhalation of food and vomit; I21.4 Non-ST elevation (NSTEMI) myocardial infarction; J15.1 Pneumonia due to Pseudomonas; E87.1 Hypo-osmolality and hyponatremia; G93.49 Other encephalopathy; N10 Acute pyelonephritis; R47.01 Aphasia; E87.0 Hyperosmolality and hypernatremia; E87.20 Acidosis, unspecified; N18.4 Chronic kidney disease, stage 4 (severe); J98.11 Atelectasis; G93.1 Anoxic brain damage, not elsewhere classified; I67.82 Cerebral ischemia; E11.649 Type 2 diabetes mellitus with hypoglycemia without coma; Z20.822 Contact with and (suspected) exposure to COVID-19; G40.901 Epilepsy, unspecified, not intractable, with status epilepticus; J45.909 Unspecified asthma, uncomplicated; G89.29 Other chronic pain; E11.65 Type 2 diabetes mellitus with hyperglycemia; D69.6 Thrombocytopenia, unspecified; E11.22 Type 2 diabetes mellitus with diabetic chronic kidney disease; K59.00 Constipation, unspecified; N30.90 Cystitis, unspecified without hematuria; F41.9 Anxiety disorder, unspecified; R74.01 Elevation of levels of liver transaminase levels; E03.9 Hypothyroidism, unspecified; E83.42 Hypomagnesemia; I13.10 Hypertensive heart and chronic kidney disease without heart failure, with stage 1 through stage 4 chronic kidney disease, or unspecified chronic kidney disease; Z85.3 Personal history of malignant neoplasm of breast; Z90.13 Acquired absence of bilateral breasts and nipples; Z90.49 Acquired absence of other specified parts of digestive tract; Z90.710 Acquired absence of both cervix and uterus; Z91.14 Patient's other noncompliance with medication regimen
CPT/HCPCS: 31500; 36415; 36556; 36600; 70551; 71045; 74176; 76604; 76700; 76770; 76937; 80048; 80053; 80061; 80202; 81003; 82010; 82140; 82150; 82375; 82533; 82550; 82553; 82570; 82805; 82962; 83036; 83520; 83605; 83735; 83930; 83935; 84100; 84132; 84145; 84156; 84439; 84443; 84478; 84480; 84484; 85025; 85027; 85049; 85362; 85379; 85384; 86022; 86038; 86160; 86225; 86705; 86706; 86709; 86803; 87070; 87077; 87186; 87340; 87426; 93005; 93306; 93970; 94002; 94003; 94640; 94660; 95816; 99285; A6261; C1752; C9113; C9803; J0360; J0878; J1650; J1815; J1953; J2185; J2250; J2270; J2370; J2543; J3010; J3370; J3475; J3490; J7030; J7050; J7060; U0003; U0005